=== PATIENT | female | born 1995 | race Native Hawaiian/Other Pacific Islander ===

== ENCOUNTER 2017-01-04 14:56 | Emergency (ER) | payer OTHER | END 2017-01-04 18:22 | disposition home or self-care (01) | DX: N76.0 Acute vaginitis (principal); B96.89 Other specified bacterial agents as the cause of diseases classified elsewhere ==

== ENCOUNTER 2017-03-23 11:07 | Emergency (ER) | payer OTHER ==
[2017-03-23 11:38] LABS: BILIRUBIN,URINE NEGATIVE (NEGATIVE); PH,URINE 7.5 PH (5.0-7.5)
[2017-03-23 11:41] LABS: HCG UR QUAL NEGATIVE; UA CHARGE (STRIP ONLY) YES; UR CULTURE IF IND NOT INDICATED
--- NOTE | 2017-03-23 13:14 | ED Physician Documentation ---
PD HPI FEMALE - Stated complaint Stated Complaint: FEMALE - Chief complaint Chief Complaint: General - History obtained from History obtained from: Patient - History of Present Illness Timing - onset: How many days ago (2-3) Timing - duration: Days Timing - details: Gradual onset, Still present (noted tenderness with wiping and pain with urination and small lumps/sores/swelling left upper labia mainly.) Associated symptoms: Genital sore/lesion, Dysuria. No: Fever, Abdominal pain, Pelvic pain, Vaginal discharge, Urinary frequency Contributing factors: Sexually active. No: Exposed to STD (no noted genital STD exposure. She says her partner does have occasionl oral cold sores and does perform oral sex at times.) Similar symptoms before: Has not had sx before Recently seen: Not recently seen Review of Systems Constitutional: denies: Fever, Chills, Myalgias GI: denies: Abdominal Pain, Nausea, Vomiting, Diarrhea : reports: Vaginal bleeding (just finishing her menses). denies: Dysuria, Frequency, Discharge PD PAST MEDICAL HISTORY - Past Medical History Past Medical History: No - Past Surgical History Past Surgical History: No - Present Medications Home Medications: Ambulatory Orders Medication Instructions Recorded Confirmed Lidocaine Ointment 5% [Xylocaine 1 applic TOP Q3H PRN #1 tube 03/23/17 Ointment 5%] Metronidazole [Flagyl] 500 mg PO BID #14 tablet 03/23/17 Mupirocin 1 applic TP TID #15 oint...g. 03/23/17 Valacyclovir HCl [Valacyclovir] 1,000 mg PO BID #14 tablet 03/23/17 - Allergies Allergies/Adverse Reactions: Allergies Allergy/AdvReac Type Severity Reaction Status Date / Time No Known Drug Allergies Allergy Verified 03/24/17 14:19 - Social History Does the pt smoke?: No Smoking Status: Never smoker Does the pt drink ETOH?: No Does the pt have substance abuse?: No - Immunizations Immunizations are current?: Yes - POLST Patient has POLST: No PD ED PE NORMAL - Vitals Vital signs reviewed: Yes - General General: Alert and oriented X 3, No acute distress, Well developed/nourished - HEENT HEENT: Pharynx benign - Neck Neck: Supple, no meningeal sign, No adenopathy - Abdomen Abdomen: Soft, Non tender - 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 Vaginal vault with some white milky discharge, but not purulent per se, and no cervicitis. No vault lesions seen. ) - Rectal Rectal: Deferred Results - Vitals Vitals: Oxygen O2 Source Room air - Labs Labs: Microbiology 03/23/17 13:46 Wet Prep - Final Vaginal Laboratory Tests 03/23/17 11:25 Urine Color YELLOW Urine Clarity CLEAR Urine pH 7.5 Ur Specific [place] 1.020 Urine Protein NEGATIVE Urine Glucose (UA) NEGATIVE Urine Ketones NEGATIVE Urine Occult Blood NEGATIVE Urine Nitrite NEGATIVE Urine Bilirubin NEGATIVE Urine Urobilinogen 0.2 (NORMAL) Ur Leukocyte Esterase NEGATIVE Ur Microscopic Review NOT INDICATED Urine Culture Comments NOT INDICATED Urine HCG, Qual NEGATIVE PD MEDICAL DECISION MAKING - ED course Complexity details: considered differential (looks likely herpetic; some sign of BV on exam as well. Likely was oral/genital contact so may be HSV1 and thus not as bad of an outbreak appearance. ), d/w patient Departure - Departure Disposition: 01 Home, Self Care Clinical Impression: Herpes genitalis in women, Bacterial vaginosis Condition: Stable Record reviewed to determine appropriate education?: Yes Instructions: ED Herpes Simplex Virus Type 2, ED Vaginosis Bacterial Follow-Up: Tomer Andino ARNP [Primary Care Provider] - Prescriptions: Metronidazole [Flagyl] 500 mg PO BID #14 tablet Mupirocin 1 applic TP TID #15 oint...g. Valacyclovir HCl [Valacyclovir] 1,000 mg PO BID #14 tablet Lidocaine Ointment 5% [Xylocaine Ointment 5%] 1 applic TOP Q3H PRN #1 tube PRN Reason: Pain Comments: This looks herpetic and I would treat it that way. The herpetic culture will result in about 3 days. There is some vaginal discharge too, so consider BV as well. You can use mupirocin antibiotic ointment to sores in case of some bacterial as well. Topical lidocaine can help with the pain of the sores. Otherwise Tylenol and/or Ibuprofen for pains. The cultures will result in about 3 days. Discharge Date/Time: 03/23/17 14:05
[2017-03-23 14:03] VITALS: BP 116/84
== END 2017-03-23 14:05 | disposition home or self-care (01) ==
LOC: ED 11:07
DX: A60.09 Herpesviral infection of other urogenital tract (principal); N76.0 Acute vaginitis; B96.89 Other specified bacterial agents as the cause of diseases classified elsewhere
CPT/HCPCS: 81001; 81003; 81025; 87086; 87210; 87491; 87529; 87591; 99283

== ENCOUNTER 2017-03-24 14:11 | Emergency (ER) | payer OTHER ==
[2017-03-24 14:19] VITALS: BP 114/59
--- NOTE | 2017-03-24 17:09 | ED Physician Documentation ---
History of Present Illness - Stated complaint Stated Complaint: FEMALE - Chief complaint Chief Complaint: Abd Pain - History obtained from History obtained from: Patient - Additonal information Additional information: This patient is a very nice 21-year-old female without any past medical history who is seen yesterday for genitourinary problems. The physician who saw her yesterday suspected HSV infection and a swab was obtained and she was actually started on empiric anti-retroviral therapy with Valtrex. She complains of increased pain and swelling in the labia bilaterally. She also complains of bilateral groin pain. She does not have any fever or chills. There is no constipation or diarrhea. She is otherwise doing well. Review of systems: For pertinent positives and negatives see history of present illness otherwise all other systems have been reviewed and are normal Review of Systems Ten Systems: 10 systems reviewed and negative Constitutional: reports: Myalgias. denies: Fever, Chills PD PAST MEDICAL HISTORY - Past Surgical History Past Surgical History: No - Present Medications Home Medications: Ambulatory Orders Medication Instructions Recorded Confirmed Lidocaine Ointment 5% [Xylocaine 1 applic TOP Q3H PRN #1 tube 03/23/17 Ointment 5%] Metronidazole [Flagyl] 500 mg PO BID #14 tablet 03/23/17 Mupirocin 1 applic TP TID #15 oint...g. 03/23/17 Valacyclovir HCl [Valacyclovir] 1,000 mg PO BID #14 tablet 03/23/17 oxyCODONE/ACET 5/325 [Percocet 5 1 each PO Q4-6H PRN #16 tablet 03/24/17 mg/325 mg] - Allergies Allergies/Adverse Reactions: Allergies Allergy/AdvReac Type Severity Reaction Status Date / Time No Known Drug Allergies Allergy Verified 03/24/17 14:19 - Social History Does the pt smoke?: No Smoking Status: Never smoker Does the pt drink ETOH?: No Does the pt have substance abuse?: No - Immunizations Immunizations are current?: Yes - POLST Patient has POLST: No PD ED PE NORMAL - General General: Alert and oriented X 3 - HEENT HEENT: Atraumatic, PERRL - Cardiac Cardiac: RRR - Respiratory Respiratory: No respiratory distress - Abdomen Abdomen: Normal bowel sounds - 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 Both labia majora swollen and there is some matting and discharge present. Several punctate lesions and a few with vesicles pathognomonic for HSV infection. The patient's HSV test is pending however given the obvious herpes infection and her chief complaint of pain to the introitus will go ahead and write her for some stronger pain medication. She is currently taking Valtrex as recommended by the physician who saw her yesterday. She will continue the Valtrex and take a small amount of pain medication as needed. Disposition: To home Clinical impression: 1. Genital herpes, first outbreak Results - Vitals Vitals: Vital Signs - 24 hr 03/24/17 14:16 Temperature 36.4 C L Heart Rate 83 Respiratory 16 Rate Blood Pressure 114/59 L O2 Saturation 100 Oxygen O2 Source Room air PD MEDICAL DECISION MAKING - ED course ED course: Patients clinical history and physical exam are consistent with herpes infection. She will be treated with Valtrex which she is already on, and additional narcotic analgesia. Disposition: To home Clinical impression: 1. Acute outbreak of genital herpes with vulvovaginal inflammation Departure - Departure Clinical Impression: Sexually transmitted disease, Herpes genitalis in women Herpes genitalia Qualifiers: Herpes simplex infection site: vulvovaginitis Qualified Code(s): A60.04 - Herpesviral vulvovaginitis Condition: Good Instructions: ED Herpes Simplex Virus Type 2 Follow-Up: Tomer Andino ARNP [Primary Care Provider] - Prescriptions: oxyCODONE/ACET 5/325 [Percocet 5 mg/325 mg] 1 each PO Q4-6H PRN #16 tablet PRN Reason: Pain
[2017-03-24] MEDS ORDERED: oxyCOD/ACETAMIN 5 MG/325 MG TABLET PO STA (17:13)
[2017-03-24] MEDS ORDERED: oxyCOD/ACETAMIN 5 MG/325 MG TABLET PO ONE (17:21)
== END 2017-03-24 17:25 | disposition home or self-care (01) ==
LOC: ED 14:11
DX: A60.04 Herpesviral vulvovaginitis (principal)
CPT/HCPCS: 99283